=== PATIENT | male | born 1950 | race Caucasian/White ===

== ENCOUNTER → 2018-10-02 13:50 | Outpatient (CLI) | payer MEDICARE, BC, SELFPAY ==
--- NOTE | 2018-10-02 14:06 | CI_ITS ---
Cerebrovascular Exam IMPRESSIONS 1. The bilateral vertebral arteries are patent with normal antegrade flow. 2. Study suggests 20-49% stenosis involving the right internal carotid artery. 3. Study suggests 20-49% stenosis involving the left internal carotid artery. History: PMH: Calcification seen left carotid on c-spine x-ray. Risk factors: Hypertension. Carotid duplex study. Complete study and Doppler flow study including spectral analysis, color and kasper scale imaging. Height: Height: 182.9cm. Height: 72in. Weight: Weight: 97.5kg. Weight: 214.6lb. Body mass index: BMI: 29.2kg/m^2. Body surface area: BSA: 2.25m^2. Location: Vascular laboratory. Patient status: Outpatient. Tables: Arterial flow: + +--------+--------+ Location V abdoulaye V ed + +--------+--------+ Right CCA - proximal 80.1cm/s 18.1cm/s + +--------+--------+ Right CCA - distal 69.9cm/s 18.1cm/s + +--------+--------+ Right ECA 82.5cm/s 14.1cm/s + +--------+--------+ Right ICA - proximal 53.4cm/s 20.4cm/s + +--------+--------+ Right ICA - mid 69.9cm/s 22cm/s + +--------+--------+ Right ICA - distal 101cm/s 31.4cm/s + +--------+--------+ Right vertebral 47.9cm/s 13.4cm/s + +--------+--------+ Left CCA - proximal 80.1cm/s 18.1cm/s + +--------+--------+ Left CCA - distal 74.6cm/s 23.6cm/s + +--------+--------+ Left ECA 88cm/s 12.6cm/s + +--------+--------+ Left ICA - proximal 70.7cm/s 24.4cm/s + +--------+--------+ Left ICA - mid 116cm/s 39.3cm/s + +--------+--------+ Left ICA - distal 122cm/s 36.1cm/s + +--------+--------+ Left vertebral 44.8cm/s 11cm/s + +--------+--------+ Velocity ratios: + + + + + + Right, V sys Right, V ed Left, V sys Left, V ed + + + + + + Max ICA/dist CCA 1.44 1.73 1.64 1.67 + + + + + + (Report amended ) Electronically signed by: Vinayak Chang [id number]
== END ==
PROVIDERS: Visit Provider Internal Medicine
DX: I65.22 Occlusion and stenosis of left carotid artery; E78.5 Hyperlipidemia, unspecified; I11.9 Hypertensive heart disease without heart failure; I20.9 Angina pectoris, unspecified; N18.2 Chronic kidney disease, stage 2 (mild); R00.1 Bradycardia, unspecified; R73.9 Hyperglycemia, unspecified
CPT/HCPCS: 93880

== ENCOUNTER → 2019-10-01 09:48 | Outpatient (CLI) | payer MEDICARE, BC, SELFPAY ==
--- NOTE | 2019-10-01 09:51 | CA_ITS ---
APPROVED REPORT EXAM: Comprehensive 2D, Doppler, and color-flow Echocardiogram Chief Business Officer: Susannah Hernandez RDCS Ht: 6 ft 0 in Wt: 215lbs BSA: 2.20 BP: 161/85 mmHg Indications: Arrhythmia, CAD, Hyperlipidemia, Hypertension/HDD 2D Dimensions LVOT 2.43 cm (M/F) 1.5-2.5 M-Mode Dimensions RVDd 2.88 cm (0.9-2.6) LVDd 5.96 cm (3.5-5.7) LVDs 4.26 cm (3.5-5.7) IVSd 1.05 cm (0.6-1.1) PWd 0.85 cm (0.6-1.1) EF (Teich) 54.10% FS 28.50% EDV (Teich) 177.30 mL ESV (Teich) 81.30 mL LV Diastology E/A Ratio 0.35 Mitral Valve MV A Velocity 69.00 (40-130 cm/s) Left Ventricle Left atrium is mildly enlarged, left ventricle is normal size, mild concentric left ventricular hypertrophy, visually estimated ejection fraction 55% with no regional wall motion abnormality, grade 1 diastolic dysfunction seen without tissue Doppler evidence of raise left atrial pressure. Right Ventricle Right atrium and right ventricle mildly enlarged with normal contractility. Aortic Valve Aortic valve is thickened and calcified leaflet chordae display good mobility, there is no aortic stenosis or aortic insufficiency. Mitral Valve Mitral valve is grossly normal, there is mild mitral regurgitation. Tricuspid Valve Tricuspid valve is grossly normal, there is mild tricuspid regurgitation, tricuspid regurgitation jet velocity is inadequate for calculation of the right ventricular systolic pressure. Pulmonic Valve Pulmonic valve is poorly visualized. Great Vessels Aortic root is normal size. Pericardium No significant pericardial effusion noted. Conclusion 1. Mildly low left atrium, normal left ventricular size, mild concentric left ventricular hypertrophy, visually estimated ejection fraction 55% with no regional wall motion abnormality, grade 1 diastolic dysfunction seen without tissue Doppler evidence of raise left atrial pressure. 2. Mildly enlarged right ventricle with normal contractility. 3. Mild mitral and tricuspid regurgitation. 4. No significant pericardial effusion noted. Electronically signed by : Vickey Santacruz, 10/02/2019 06:20:31
== END ==
PROVIDERS: PCP Family Medicine; Visit Provider Urology
DX: E78.5 Hyperlipidemia, unspecified (principal); I11.9 Hypertensive heart disease without heart failure; I25.10 Atherosclerotic heart disease of native coronary artery without angina pectoris; R00.1 Bradycardia, unspecified
CPT/HCPCS: 93306

== ENCOUNTER → 2020-04-28 12:42 | Outpatient (CLI) | payer MEDICARE, BC, SELFPAY ==
--- NOTE | 2020-04-28 12:43 | CA_ITS ---
APPROVED REPORT Early Childhood Special Educator: CT Laterality: Bilateral Study Quality: Good Indications: omar Risk Factors Hypertension: Hyperlipidemia Doppler Spectral Velocity Analysis ECA (R) 121.40/15.40 cm/s ECA (L) 92.50/15.40 cm/s dICA (R) 120.80/32.60 cm/s dICA (L) 102.10/36.60 cm/s Dharmesh (R) 108.50/36.70 cm/s Dharmesh (L) 123.30/39.50 cm/s pICA (R) 95.80/24.70 cm/s pICA (L) 129.10/34.70 cm/s dCCA (R) 93.40/24.80 cm/s dCCA (L) 72.80/21.40 cm/s pCCA (R) 106.20/22.30 cm/s pCCA (L) 101.10/20.60 cm/s Vert (R) 54.80/14.60 cm/s Vert (L) 48.70/10.20 cm/s ICA/CCA 1.30 ICA/CCA 1.80 Conclusion Duplex evaluation demonstrates stenosis of the right proximal internal carotid artery in the range of 20-49% with PSV <140 cm/sec, EDV <100 cm/sec, and IC/CC Ratio <4.0, lower end scale. Duplex evaluation demonstrates stenosis of the left proximal internal carotid artery in the range of 20-49% with PSV <140 cm/sec, EDV <100 cm/sec, and IC/CC Ratio <4.0, lower end of scale. Duplex evaluation demonstrates antegrade flow of the bilateral Vertebral Arteries. Electronically signed by : Vinayak Chang MD 04/28/2020 18:47:21
== END ==
PROVIDERS: PCP Family Medicine; Visit Provider Nurse Practitioner Family
DX: I65.23 Occlusion and stenosis of bilateral carotid arteries (principal)
CPT/HCPCS: 93880

== ENCOUNTER → 2021-11-24 11:01 | Outpatient (CLI) | payer MEDICARE, BC, SELFPAY ==
--- NOTE | 2021-11-24 11:02 | CA_ITS ---
FINAL REPORT TECHNIQUE: Color Doppler, duplex Doppler and kasper scale sonography of the bilateral neck arterial vasculature was performed. Velocities were measured in the carotid arteries. Stenosis evaluation based on the validated velocity criteria. CLINICAL HISTORY: MARGIE,HTN,HLD FINDINGS: The peak systolic velocity of the right common carotid artery is 83 cm/s. The peak systolic velocity of the right internal carotid artery is 92 cm/s and end diastolic velocity 20 cm/s. The ICA/CCA ratio is 1.3. A mild amount of plaque is present. The right external carotid artery is patent. The right vertebral artery is patent with antegrade flow. The peak systolic velocity of the left common carotid artery is 83 cm/s. The peak systolic velocity of the left internal carotid artery is 97 cm/s and end diastolic velocity 26 cm/s. The ICA/CCA ratio is 1.3. A mild amount of plaque is present. The left external carotid artery is patent.The left vertebral artery is patent with antegrade flow. IMPRESSION: Less than 50% bilateral carotid stenosis. Bilateral patent vertebral arteries with antegrade flow. Reviewed, Interpreted and Dictated by Frank Collier MD Transcribed by Afia Carrillo Authenticated by Frank Collier MD on 11/24/2021 12:57:51 PM [facility]
== END ==
PROVIDERS: PCP Family Medicine; Visit Provider Physician Assistant
DX: E78.2 Mixed hyperlipidemia (principal); I11.9 Hypertensive heart disease without heart failure; I25.10 Atherosclerotic heart disease of native coronary artery without angina pectoris; I65.23 Occlusion and stenosis of bilateral carotid arteries; N18.2 Chronic kidney disease, stage 2 (mild)
CPT/HCPCS: 93880

== ENCOUNTER 2022-12-11 19:07 | Emergency (ER) | payer MEDICARE, BC, SELFPAY ==
[2022-12-11 19:08] VITALS: BP 189/82; PULSE 63; RESP 17; TEMP 36.7; O2SAT 98; BMI 31.1
--- NOTE | 2022-12-11 19:25 | XR_ITS ---
PROCEDURE INFORMATION: Exam: XR Chest Exam date and time: 12/11/2022 7:28 PM Age: 72 years old Clinical indication: Chest wall pain; Additional info: Intermittent chest pain TECHNIQUE: Imaging protocol: Radiologic exam of the chest. Views: 2 views. COMPARISON: No relevant prior studies available. FINDINGS: Lungs: Unremarkable. No consolidation. Pleural spaces: Unremarkable. No pleural effusion. No pneumothorax. Heart/Mediastinum: Unremarkable. No cardiomegaly. Bones/joints: Unremarkable. IMPRESSION: No acute findings.
[2022-12-11 19:30] VITALS: BP 165/84; PULSE 56; RESP 22; O2SAT 92
[2022-12-11 19:32] LABS: Basophils # 0.1 K/mm3 (0-0.2); Basophils % 1.6 % (0.1-2.0); Eosinophils # 0.2 K/mm3 (0.0-0.4); Eosinophils % 2.1 % (0.1-12.0); Hematocrit 48.6 % (42.0-52.0); Hemoglobin 15.9 g/dL (14.1-18.0); Lymphocytes # 2.2 K/mm3 (0.7-4.5); Lymphocytes % 28.7 % (10-50); Mean Corpuscular HGB Conc 32.8 g/dL (31.8-35.4); Mean Corpuscular Hemoglobin 30.3 pg (27.0-31.2); Mean Corpuscular Volume 92.6 fl (80-94); Mean Platelet Volume 8.3 fl (7.4-10.4); Monocytes # 0.3 K/mm3 (0.1-1.0); Monocytes % 4.5 % (1.7-9.3); Neutrophils # 4.8 K/mm3 (1.8-7.8); Neutrophils % 63.2 % (37.0-80.0); Platelet Count 208 K/mm3 (142-424); Red Blood Count 5.25 M/mm3 (4.60-6.20); Red Cell Distribution Width 13.3 % (11.5-17.5); White Blood Count 7.5 K/mm3 (4.8-10.8)
--- NOTE | 2022-12-11 19:35 | PC.NURSE ---
Pt gone to RAD via wheelchair
[2022-12-11 19:42] LABS: Chloride 106 mmol/L (98-107); Potassium 4.2 mmoL/L (3.5-5.1); Sodium 141 mmol/L (136-145)
--- NOTE | 2022-12-11 19:44 | PC.NURSE ---
Pt back from RAD
[2022-12-11 19:45] LABS: Anion Gap 12.2 mEq/L (5-15); Blood Urea Nitrogen 22 mg/dl (9-20); Calcium 9.1 mg/dl (8.4-10.2); Carbon Dioxide 27 mmol/L (22.0-30.0); Creatinine Clearance Estimated 101 mL/min (50-200); Estimated Glomerular Filt Rate 74 ml/min (>60); GFR (African American) 89 ML/MIN (>60); Glucose 179 mg/dl (74-100); Magnesium 1.8 mg/dl (1.6-2.3)
[2022-12-11 19:47] LABS: Bilirubin,Unconjugated 0.2 mg/dL (0.0-1.1)
[2022-12-11 19:48] LABS: Alanine Aminotransferase 50 U/L (12-78); Albumin Level 4.5 g/dl (3.5-5.0); Alkaline Phosphatase 47 U/L (38-126); Aspartate Amino Transferase 47 U/L (17-59); Bilirubin,Direct 0.4 mg/dl (0.0-0.4); Bilirubin,Indirect 0.2 mg/dL (0.0-0.9); Bilirubin,Total 0.6 mg/dl (0.2-1.3); Total Protein,Serum 7.7 g/dl (6.3-8.2)
[2022-12-11 19:54] LABS: NT Pro Brain Natriuretic Pep. 84.3 pg/mL (0-125)
[2022-12-11 19:58] LABS: Troponin I < 0.01 ng/ml (0.00-0.034)
--- NOTE | 2022-12-11 20:00 | ECG_ITS ---
APPROVED REPORT Exam: Resting ECG HR:71 bpm ECG Measurements Heart Rate 71 AXES PA 181 P 70 QRSd 128 QRS -35 QT 384 T 85 QTc 406 Conclusion SINUS RHYTHM WITH OCCASIONAL VENTRICULAR PREMATURE COMPLEXES LEFT AXIS DEVIATION [QRS AXIS < -30] SEPTAL MYOCARDIAL INFARCTION , PROBABLY OLD [40+ ms Q WAVE IN V1/V2] ABNORMAL ECG UNCONFIRMED REPORT Electronically signed by : Himanshu David MD 12/12/2022 19:50:41
--- NOTE | 2022-12-11 20:22 | PC.NURSE ---
Dr. Pak at BS speaking with pt
--- NOTE | 2022-12-11 20:26 | HMH.EDCP ---
Discharge Plan Disposition Patient Disposition: Home, Self-Care Chief Complaint: Chest Pain Prescriptions Prescriptions: No Action aspirin [Adult Low Dose Aspirin] 81 mg tablet,delayed release (DR/EC) 81 mg PO QDAY lisinopril-hydrochlorothiazide 20-12.5 mg tablet 1 tab PO QDAY nitroglycerin 0.4 mg tablet, sublingual 0.4 mg SUBLINGUAL Q5M PRN (Reason: Chest Pain) alprazolam [Xanax] 1 mg tablet 1 mg PO TID PRN (Reason: anxitey) omeprazole 40 mg capsule,delayed release(DR/EC) 40 mg PO QDAY rosuvastatin 10 mg tablet 10 mg PO QDAY Referrals Follow up/Referrals: Kevin Knight MD [Primary Care Provider] - See instructions Naldo Perea MD [Staff Physician] - See instructions Clinical Impressions Clinical Impression: Chest pain Instructions Patient Instructions: DI for Chest Pain Discharge ED Provider: Pasha (ED),Robby Pool Chest Pain HPI General Chief Complaint: Chest Pain Stated Complaint: CHEST PAIN Time Seen by Provider: 12/11/22 20:05 Mode of Arrival: Family Vehicle Source of Information: Patient, Spouse and Medical Record Limitations: No Limitations Description of Symptoms (Recalled from ER Triage Doc. by RN): Pt c/o several episodes of chest pain today. Denies any pain at this time. States it last occured about 1800 today. States it midsteral and occassional has radiated to right or left arm. Denies any others symtoms such as n/v/d, SOA, dizziness, or jaw/neck pain. States 6 yrs he had a heart cath at [place] by Dr. Perea that had a 40% blockage but no stents were placed. History of Present Illness HPI narrative: pt with episodes of chest pain over the last 2 weeks with hx of htn - MD complaint: chest pain indicative of cardiac Onset (ago): day(s) Duration: now resolved Activity at onset: light activity Pain location: left chest Severity: moderate Quality: other Pain radiation: LUE Risk Factors for CAD: Hypertension and Family Hx of CAD Treatments prior to or on arrival for Cardiac Chest Pain: none BOOM Score for Non-Stemi Age of Patient: 70-79 years old Heart Rate: <50 bpm Systolic Blood Pressure: 140-159 mmHg Serum Creatinine: 0.80-1.19 mg/dl CHF Killip Class: I-No CHF Other Risk Factors: None Non-Stemi Risk Score: 106 Risk Stratification: 1-108 = Low Risk Related Data Home Medications Medication Instructions Recorded Confirmed aspirin 81 mg tablet,delayed 81 mg PO QDAY heart health 11/15/17 12/11/22 release (Adult Low Dose Aspirin) lisinopril 20 1 tab PO QDAY High blood pressure 11/15/17 12/11/22 mg-hydrochlorothiazide 12.5 mg tablet nitroglycerin 0.4 mg sublingual 0.4 mg sublingual Q5M PRN Chest 11/15/17 12/11/22 tablet Pain alprazolam 1 mg tablet (Xanax) 1 mg PO TID PRN anxitey 04/28/20 12/11/22 omeprazole 40 mg capsule,delayed 40 mg PO QDAY GERD 12/11/22 12/11/22 release rosuvastatin 10 mg tablet 10 mg PO QDAY High cholesterol 12/11/22 12/11/22 Allergies Allergy/AdvReac Type Severity Reaction Status Date / Time No Known Allergies Allergy Verified 05/25/22 10:56 [facility] Disclaimer: The information contained in this section may have been updated after the patient was seen, as this information can be updated by other users. Social History Smoking Status: Never smoker alcohol intake: never substance use type: denies use current occupational status: retired Travel in the last 8 weeks: Inside the [place] ROS Obtained: Yes All systems reviewed & no additional complaints except as documented Physical Exam General General appearance: alert Head Head exam: normocephalic Eye Eye exam: Present PERRL and EOMI ENT ENT exam: Present mucous membranes moist Neck Neck exam: Present trachea midline Respiratory Respiratory exam: Present normal lung sounds bilaterally; Absent respiratory distress Cardiovascular Cardiovascular exam: Present regular rate and systolic murmur Abdominal Exam Abdominal e
[2022-12-11 20:44] VITALS: BP 147/69; PULSE 56; RESP 19; O2SAT 93
--- NOTE | 2022-12-11 20:45 | PC.NURSE ---
recheck pt, no pain at this time, resting comfortably. Given update on labs/xray, and waiting on 2nd troponin
[2022-12-11 21:01] VITALS: BP 150/69; PULSE 50; RESP 19; O2SAT 94
--- NOTE | 2022-12-11 22:04 | PC.NURSE ---
Second trop drawn and sent to lab
[2022-12-11 22:38] LABS: Troponin I < 0.01 ng/ml (0.00-0.034)
[2022-12-11 22:45] VITALS: BP 146/72; PULSE 49; RESP 18; TEMP 36.7; O2SAT 94
--- NOTE | 2022-12-11 22:50 | PC.NURSE ---
Dr. Pak at speaking with pt/family
== END 2022-12-11 23:01 | disposition home or self-care (01) ==
PROVIDERS: Emergency Medicine; Emergency Provider Emergency Medicine; PCP Family Medicine
DX: R07.89 Other chest pain (principal)
CPT/HCPCS: 71046; 80048; 80076; 83735; 83880; 84484; 85025; 93005; 96360; 99285

== ENCOUNTER → 2022-12-26 09:17 | Outpatient (CLI) | payer MEDICARE, BC, SELFPAY ==
--- NOTE | 2022-12-26 09:18 | CA_ITS ---
APPROVED REPORT EXAM: Comprehensive 2D, Doppler, and color-flow Echocardiogram Aviation Medicine Specialist: Jossy Cox RVT Ht: 6 ft 0 in Wt: 229lbs BSA: 2.26 BP: 150/69 mmHg Indications: ABN EKG,CP,HTN,HLD 2D Dimensions LVOT 2.52 cm (M/F) 1.5-2.5 LA Volume 35.90 mL LA Volume Index 15.88 mL/m2 (M/F) 16-34 M-Mode Dimensions RVDd 3.29 cm (0.9-2.6) LA Diam 3.83 cm (1.9-4.0) LVDd 5.42 cm (3.5-5.7) Ao Diam 3.39 cm (2.0-3.7) LVDs 3.94 cm (3.5-5.7) IVSd 1.13 cm (0.6-1.1) PWd 0.56 cm (0.6-1.1) EF (Teich) 52.60% FS 27.30% EDV (Teich) 142.50 mL TAPSE 2.68 (<1.7) ESV (Teich) 67.50 mL LV Diastology E Decel Time 380.00 (160-240 msec) E/A Ratio 0.6 MED E' 6.20 (< 7 cm/sec) E'/MED E' Ratio 8.90 (>14) LAT E' 8.80 (<10 cm/sec) E/LAT E' Ratio 6.27 (>14) Aortic Valve AI PHT 753.00 ms AO Peak GR. 13.50 mmHg Mitral Valve MV E Max Meir. 55.00 (40-130 cm/s) MV A Velocity 99.00 (40-130 cm/s) E/A Ratio 0.56 MV Decel. Time 380.00 (160-240 ms) MV PHT 111.00 ms Pulmonary Valve PV Peak Velocity 95.00 (50-150 cm/s) Tricuspid Valve TR P. Velocity 267.00 cm/s RAP Estimate 10.00 mmHg RVSP 38.40 mmHg Left Ventricle Left atrium is mildly enlarged on left ventricular normal size mild concentric left ventricular hypertrophy, estimated ejection fraction 55% with no regional wall motion abnormality, grade 1 diastolic dysfunction seen without tissue Doppler evidence of raise left atrial pressure. Right Ventricle Right atrium and right ventricular mildly enlarged with normal contractility. Aortic Valve Aortic valve is minimally thickened and calcified without aortic stenosis, there is trace aortic insufficiency. Mitral Valve Mitral valve is grossly normal, there is trace mitral regurgitation. Tricuspid Valve Tricuspid valve grossly normal, there is trace tricuspid regurgitation, tricuspid regurgitation jet velocity is inadequate for calculation of the right ventricular systolic pressure. Pulmonic Valve Pulmonic valve is poorly visualized. Great Vessels Aortic root is normal size. Inferior vena cava is poorly visualized. Pericardium No significant pericardial effusion noted. Conclusion 1. Mild biatrial enlargement, normal left ventricular size, mild concentric left ventricular hypertrophy, estimated ejection fraction 55% with no regional wall motion abnormality, grade 1 diastolic dysfunction seen without tissue Doppler evidence of late left atrial pressure. 2. Mildly enlarged right ventricle with normal contractility. 3. Thickened and calcified aortic valve without aortic stenosis, there is trace aortic insufficiency. 4. Trace mitral and tricuspid regurgitation. 5. No significant pericardial effusion noted. 6. Inferior vena cava is poorly visualized. Electronically signed by : Vickey Santacruz MD 12/26/2022 17:36:16
== END ==
PROVIDERS: PCP Family Medicine; Visit Provider Nurse Practitioner
DX: E78.2 Mixed hyperlipidemia (principal); I11.9 Hypertensive heart disease without heart failure; I25.10 Atherosclerotic heart disease of native coronary artery without angina pectoris; I65.22 Occlusion and stenosis of left carotid artery; I65.23 Occlusion and stenosis of bilateral carotid arteries; N18.2 Chronic kidney disease, stage 2 (mild)
CPT/HCPCS: 93306

== ENCOUNTER → 2023-01-09 11:47 | Outpatient (CLI) | payer MEDICARE, BC, SELFPAY ==
--- NOTE | 2023-01-09 | CA_ITS ---
APPROVED REPORT Exam: Pharmacologic Technologist: Michelle Mcclain, Ht: 6 ft 0 in Wt: 226 lbs BSA: 2.24 m2 HR: 59 bpm BP: 172/82 mmHg Rhythm: NSR, PRWP anteriorly Medical History Medications: Omeprazole,,,,, Aspirin,,,,, Xanax,,,,, Nitroglycerin,,,,, RoSUVASTATIN,,,,, Lisinopri/HCTZ,,,,, Stress Test Details Test: LEXISCAN HR Resting HR: 62 bpm Max Heart Rate (APMHR): 150.774826 bpm Max HR Achieved: 92 bpm Target HR (85% APMHR): 127.048497 bpm % of APMHR: 61.33 Recovery HR: 69 bpm BP Resting BP: 172/82 mmHg Max BP: 180/88 mmHg Recovery BP: 162.0/79.0 mmHg ECG Resting ECG: NSR, PRWP anteriorly Clinical Reason for Termination: Completed Protocol Exercise duration: 04:10 min Highest Stage Achieved: Exercise capacity: 1.0 METs Stress ECG Conclusion During lexiscan pt had no CP noted. Occasional PVCs noted. <1.5mm ST segment changes. Non diagnostic. Test Summary REST . . . . . . . Sitting REST 04:34 . . 62 . 172/ 82 . . Stage 1 01:00 . . 90 . . . . Stage 2 01:00 . . 86 . 180/ 88 . . Stage 3 01:00 . . 80 . 175/ 81 . . Stage 4 01:00 . . 75 . 161/ 84 . . Stage 4 01:10 . . 72 . 161/ 84 . Stop exercise at 04:10 RECOVERY 01:00 . . 74 . . . . RECOVERY 02:00 . . 69 . 162/ 76 . . Electronically signed by : Vickey Santacruz MD 01/09/2023 14:08:45
--- NOTE | 2023-01-09 11:47 | NM_ITS ---
APPROVED REPORT Exam: Nuclear Stress Test Indication: chest pain..fatigue Patient Location: Outpatient Stress Tech: Michelle BELTRE Tech:CORBY Trejo RT(R)(N) Ht: 6 ft 0 in Wt: 228 lbs HR: 59 bpm BP: 172/82 mmHg BSA: 2.25 m2 TID: 1.10 History: chest pain..fatigue Procedure: Patient received 0.4 mg of intravenous Lexiscan, resting heart rate 59 bpm, resting blood pressure 172/82 mmHg, with Lexiscan maximum heart rate achieved was 86 bpm which is Less than 85 % of the maximum predicted heart rate and blood pressure was 180/88 mmHg. With Lexiscan, patient denied any complaint of chest pain. Electrocardiogram Resting electrocardiogram shows sinus rhythm, with Lexiscan there is less than 1.[address] segment depression noted from the baseline EKG. The EKG portion of the Lexiscan is nondiagnostic. Cardiac Stress and Resting SPECT Images: Cardiac Stress and Resting SPECT images were obtained using technetium 99m Myoview 31.6 mCi stress and 10.20 mCi at rest. Gated SPECT analysis of segmental wall motion and calculation of the ejection fraction also done. Prone images were also obtained. Cardiac prone images show uniform myocardial activity without segmental perfusion abnormality, computer derived ejection fraction is 42% with no regional wall motion abnormality, right ventricle is normal size and contractility. Conclusion: 1. The EKG portion of the Lexiscan is nondiagnostic. 2. No scintigraphic evidence of reversible ischemia seen, computer derived ejection fraction is 42% with no regional wall motion abnormality, right ventricle is normal size and contractility. 3. Normal Lexiscan Myoview study except for low ejection fraction of 42%. Electronically signed by : Vickey Santacruz MD 01/09/2023 15:03:20
== END ==
PROVIDERS: PCP Family Medicine; Visit Provider Nurse Practitioner
DX: I25.10 Atherosclerotic heart disease of native coronary artery without angina pectoris (principal)
CPT/HCPCS: 78452; 93017; A9502; J2785

== ENCOUNTER 2024-02-05 10:04 | Outpatient (CLI) | payer MEDICARE, BC, SELFPAY ==
--- NOTE | 2024-02-05 10:08 | XR_ITS ---
FINAL REPORT CLINICAL HISTORY: rhonchi right lung base COMPARISON: 12/11/2022 FINDINGS: Two views of the chest were obtained. The heart size and pulmonary vascularity are within normal limits. The mediastinum is normal. There are mild right base opacities which are favored to represent atelectasis. There is no pneumothorax. The bony thorax is intact. IMPRESSION: Mild right base opacities favor atelectasis. Reviewed, Interpreted and Dictated by Arjun Ray III, MD Transcribed by Dona Shelby Authenticated and [facility]
== END 2024-02-05 23:59 ==
LOC: RAD 10:05
PROVIDERS: PCP Family Medicine; Visit Provider Nurse Practitioner
DX: R09.89 Other specified symptoms and signs involving the circulatory and respiratory systems (principal)
CPT/HCPCS: 71046

== ENCOUNTER 2024-09-10 10:52 | Outpatient (CLI) | payer MEDICARE, BC, SELFPAY ==
--- NOTE | 2024-09-10 11:00 | CA_ITS ---
FINAL REPORT TECHNIQUE: Color Doppler, duplex Doppler and kasper scale sonography of the bilateral neck arterial vasculature was performed. Velocities were measured in the carotid arteries. Stenosis evaluation based on the validated velocity criteria. CLINICAL HISTORY: MARGIE, HTN, HLD. COMPARISON: None FINDINGS: The peak systolic velocity of the right common carotid artery is 104 cm/s. The peak systolic velocity of the right internal carotid artery is 93 cm/s and end diastolic velocity 27 cm/s. The ICA/CCA ratio is 1.3. A moderate amount of plaque is present. The right external carotid artery is patent. The right vertebral artery is patent with antegrade flow. The peak systolic velocity of the left common carotid artery is 73 cm/s. The peak systolic velocity of the left internal carotid artery is 100 cm/s and end diastolic velocity 22 cm/s. The ICA/CCA ratio is 1.4. A moderate amount of plaque is present. The left external carotid artery is patent.The left vertebral artery is patent with antegrade flow. IMPRESSION: Less than 50% bilateral carotid stenoses. Bilateral patent vertebral arteries with antegrade flow. If indicated, CTA or MRA could further evaluate. Reviewed, Interpreted and Dictated by Arjun Ray III, MD Transcribed by Dona Shelby Authenticated and [facility]
== END 2024-09-10 23:59 | disposition home or self-care (01) ==
LOC: RT 10:55
PROVIDERS: PCP Family Medicine; Visit Provider Nurse Practitioner
DX: I65.23 Occlusion and stenosis of bilateral carotid arteries (principal)
CPT/HCPCS: 93880

== ENCOUNTER 2025-03-13 07:24 | Day surgery (SDC) | payer MEDICARE, BC, SELFPAY ==
[2025-03-13 07:30] VITALS: BMI 31.4
[2025-03-13 07:47] VITALS: BP 162/87; PULSE 55; PULSE 60; RESP 20; O2SAT 94
[2025-03-13 08:30] VITALS: BP 170/88; PULSE 52; RESP 20; O2SAT 95
[2025-03-13] MEDS: LIDOCAINE 2% W/EPI 1:100,000 20ML VIAL 20 ML SUBCUT (08:35)
[2025-03-13] MEDS: CEFAZOLIN SODIUM 1 GM in 0.9 % SODIUM CHLORIDE 50 ML IV (08:36)
--- NOTE | 2025-03-13 08:42 | EXP.LOOP ---
[facility] Loop Recorder Date: 03/13/25 Time: 08:30 Procedure Performed:: Implantation of loop recorder Indication:: Cryptogenic stroke Technique:: Patient was brought to the cardiac Document Management Technician. After informed consent obtained, 1% lidocaine with epinephrine was used to anesthetize the site along the left anterior aspect of the chest near the sternal border. Using the preformed scalpel, an incision was made and using the supplied preloaded apparatus, the loop recorder was placed subcutaneously without difficulty. Following the deployment of the loop recorder interrogation of the device was performed to ensure appropriate voltage was being detected. Once this was verified, Steri-Strips were placed over the incision and the patient was prepped to discharge home. Patient tolerated the procedure well with minimal discomfort. Impression:: Successful implantation of loop recorder Serial Number:: [employer]Nitro[employer]-IQ EL plus Model number [id number] Serial #[id number] Plan:: Routine postop care
[2025-03-13 09:08] VITALS: BP 136/78; PULSE 47; RESP 20; O2SAT 93
[2025-03-13 09:59] VITALS: BP 155/81; PULSE 70; RESP 16; O2SAT 95
== END 2025-03-13 10:37 | disposition home or self-care (01) ==
PROVIDERS: PCP Family Medicine; Visit Provider Internal Medicine
DX: I63.9 Cerebral infarction, unspecified (principal); Z79.899 Other long term (current) drug therapy; I65.23 Occlusion and stenosis of bilateral carotid arteries; I25.10 Atherosclerotic heart disease of native coronary artery without angina pectoris; I12.9 Hypertensive chronic kidney disease with stage 1 through stage 4 chronic kidney disease, or unspecified chronic kidney disease; N18.2 Chronic kidney disease, stage 2 (mild)
CPT/HCPCS: 33285; C1764; J0690

== ENCOUNTER 2025-06-18 09:24 | Outpatient (CLI) | payer MEDICARE, BC, SELFPAY ==
--- OUTSIDE RECORDS SUMMARY | 2025-05-23 08:30 | XMS_ITS | Encounter Summary ---
Author Organization [place] [address] Care Team Providers Care Lab Aide Name Role Phone Kevin Knight MD Primary Care Provider [phone] Reason for Visit * Reason Comments Follow-up Pt sf/u on BP, anxie ty meds, pt did state he had a loop recorder put in his chest In february Encounter Details Date Type Department Care Team (Late st Contact Info) Description 05/23/2025 8:30 AM EDT Office Visit [facility] [address] [place] [address] [address] [place] [address] Cristy Branham MD [address] [place] [address] Primary hypertension (Primary Dx); Anxiety; High risk medications (not anticoagulants) long-term use Social History Tobacco Use Types Packs/Day Years Used Date Smoking Tobacco: Never Passive Smoke Exposure: Past Smokeless Tobacco: Current Chew Comments:Parents smoked duri ng his childhood. Alcohol Use Standard Drinks/Week Comments Yes 0 (1 standard drink = 0.6 oz pur e alcohol) occ [facility] Utilities Answer Date Recorded In the past 12 months has [employer] electric, gas, oil, or water company threatened to shut off services in your home? No 11/21/2024 Overall Financial Resource Strain (CARDIA) Answe r Date Recorded How hard is it for you to pa y for the very basics like food, housing, medical care, and heating? Not hard at all 11/21/2024 PHQ-2 Answer Date Recorded PHQ-2 Total Score 0 11/21/2024 [facility] - Occupational Stress Questionnaire Answer Date Recorded Do you feel stress - tense, restless, nervous, or anxious, or unable to sleep at night because your mind is troubled all the time - these days? Not at all 11/21/2024 Exercise Vital Sign Answer Date Recorde d On average, how many days pe r week do you engage in moderate to strenuous exercise (like a brisk walk)? 7 days 11/21/2024 On average, how many minutes do you engage in exercise at this level? 60 min 11/21/2024 Hunger Vital Sign Answer Date Recorded Within the past 12 months, y ou worried that your food would run out before you got the money to buy more. Never true 11/21/19 25 Within the past 12 months, t he food you bought just didn't last and you didn't have money to get more. Never true 11/21/2024 [facility] IP Transportation Answer D ate Recorded In the past 12 months, has l ack of reliable transportation kept you from medical appointments, meetings, work or from getting things needed for daily living? No 11/21/2024 Sex and Gender Information Value Date Recorded Sex Assigned at Not on file Legal Sex Male 1:24 AM EDT Gender Identity Not on file Sexual Orientation Not on file documented as of this encounter Last Filed Vital Signs Vital Sign Reading Time Taken Comments Blood Pressure 150/60 05/23/2025 8:33 AM EDT Pulse 56 05/23/2025 8:12 AM EDT Temperature 36.5 C (97.7 F) 05/23/2025 8:12 AM EDT Respiratory Rate 18 05/23/2025 8:12 AM EDT Oxygen Saturation 98% 05/23/2025 8:12 AM EDT Inhaled Oxygen Concentration - - Weight 104.1 kg (229 lb 6.4 oz) 05/23/2025 8:12 AM EDT Height 180.3 cm (5' 11 ) 05/23/2025 8:12 AM EDT Body Mass Index 31.99 05/23/2025 8:12 AM EDT documented in this encounter Functional Status * Is the person deaf or does he/she have serious difficulty hearing? Answer Date of Assessment Author No 02/23/2024 9:44 AM Mariya Trivedi MA * Is the person blind or does he/she have serious difficulty seeing even when wearing glasses? Answer Date of Assessment Author No 02/23/2024 9:44 AM Mariya Trivedi MA * Does this person have serious difficulty walking or climbing stairs? Answer Date of Assessment Author No 02/23/2024 9:44 AM Mariya Trivedi MA * Does this person have difficulty dressing or bathing? Answer Date of Assessment Author No 02/23/2024 9:44 AM Mariya Trivedi MA * Because of a physical, mental or emotional condition, does this person have difficulty doing errands alone such as visiting a doctor's office or shopping? Answer Date of Assessment Author No 02/23/2024 9:44 AM Mariya Trivedi MA documented as of this encounter Mental Status * Because of a physical, mental or emotional condition, does this person have serious difficulty concentrating, remembering or making decisions? Answer Entry Date Author No 02/23/2024 9:44 AM Mariya Trivedi MA documented in this encounter Ordered Prescriptions Prescription Sig Dispense Quantity Refills Last Filled Start Date End Date ALPRAZolam (XANAX) 1 mg Oral TabletIndications:A nxiety,High risk medications (not anticoagulants) long-term use Take 1 Tablet by mouth 3 times daily. 90 Tablet 2 05/23/2025 documented in this encounter Progress Notes * Cristy Branham MD - 05/23/2025 8:30 AM EDTAssociated Problem(s): HTN (hypertension) Goal BP: <130/80 BP Readings from Last 3 Encounters: 05/23/25 (!) 150/90 02/07/25 (!) 154/72 01/22/25 132/78 - not at goal in office (but reports that home BP readings are in goal range) Compliance: - compliant with medications Home Blood Pressure Monitoring: - continue home BP monitoring as previous and bring readings to each office visit (currently checking twice a day) Advice: - continue a low salt diet and remain physically active Medication Management: - a reassessment of the patients current diagnoses, medications, labs, potential SE, appropriate dose and risks assessed and discussed today - Pt reports home BP averaging 110-120's/60's, usually more elevated in office - Compliant w/ medications - Continue checking BP twice a day, discussed that if they begin to notice a trend of BP increasingwould advise returning to office to increase HCTZ dose - F/u 3 months w/ PCP * Cristy Branham MD - 05/23/2025 8:30 AM EDTAssociated Problem(s): Anxiety State Prescription Drug Monitoring Program (i.e ROSA, INSPECT, OARS): - Last Successful PDMP Review: 05/23/2025 8:25 AM by Cristy Branham MD Urine Drug Screen: - urine drug screen completed in the last year Controlled Substatnce Contract: - completed and on file - Sx well controlled with current medication regimen and compliant with contract - Refill prescribed - Advised to f/u w/ PCP in 3 months Orders: ALPRAZolam (XANAX) 1 mg Oral Tablet; Take 1 Tablet by mouth 3 times daily. * Cristy Branham MD - 05/23/2025 8:30 AM EDT Assessment & Plan Primary hypertension Goal BP: <130/80 BP Readings from Last 3 Encounters: 05/23/25 (!) 150/90 02/07/25 (!) 154/72 01/22/25 132/78 - not at goal in office (but reports that home BP readings are in goal range) Compliance: - compliant with medications Home Blood Pressure Monitoring: - continue home BP monitoring as previous and bring readings to each office visit (currently checking twice a day) Advice: - continue a low salt diet and remain physically active Medication Management: - a reassessment of the patients current diagnoses, medications, labs, potential SE, appropriate dose and risks assessed and discussed today - Pt reports home BP averaging 110-120's/60's, usually more elevated in office - Compliant w/ medications - Continue checking BP twice a day, discussed that if they begin to notice a trend of BP increasingwould advise returning to office to increase HCTZ dose - F/u 3 months w/ PCP Anxiety State Prescription Drug Monitoring Program (i.e ROSA, INSPECT, OARS): - Last Successful PDMP Review: 05/23/2025 8:25 AM by Cristy Branham MD Urine Drug Screen: - urine drug screen completed in the last year Controlled Substatnce Contract: - completed and on file - Sx well controlled with current medication regimen and compliant with contract - Refill prescribed - Advised to f/u w/ PCP in 3 months Orders: ALPRAZolam (XANAX) 1 mg Oral Tablet; Take 1 Tablet by mouth 3 times daily. High risk medications (not anticoagulants) long-term use Orders: ALPRAZolam (XANAX) 1 mg Oral Tablet; Take 1 Tablet by mouth 3 times daily. Progress Note: Vitals: 05/23/25 0812 BP: (!) 150/90 BP Location: Left arm Patient Position: Sitting Pulse: 56 Resp: 18 Temp: 97.7 ??F (36.5 ??C) TempSrc: Forehead SpO2: 98% Weight: 229 lb 6.4 oz (104.1 kg) Height: 5' 11 (1.803 m) Body mass index is 31.99 kg/m??. SUBJECTIVE: Chief Complaint Patient presents with Follow-up Pt sf/u on BP, anxiety meds, pt did state he had a loop recorder put in his chest In february HPI: Pt here today for BP f/u and Anxiety medication f/u, pt stated he had a loop recorder put in his chest in february. Hypertension: Home reporting of hypertension was reviewed at time of visit. Thomas denies any episodes of dizziness, lightheadedness, presyncope, syncope, headache, or chest pain. Thomas does not report any new symptoms of possible hypertension sequelae. The patient reports that he is not having significant issues or side effects of current medications/treatments. Reports BP is usually 120's/60's at home, highe st readings usually in low 130's. Controlled Substance Common Conditions Interval Assessment: Anxiety: Thomas De La Fuente is here for follow up of chronic anxiety and medication management. Currently, he reports anxiety level as controlled with current treatments in place. He reports taking current medications 3 times per day. He is not having side effects from medications. He has abstained from alcohol while requiring this medication.Current limitations of anxiety symptoms include: ability to cope with day to day stress, and situations, without medication Doing well, No SE's with medication. No evidence of abuse/diversion. Pt informed and aware of medication's potential for abuse/dependence. Functional goal/goals of treatment: improve ability to function on day to day basis Review of Systems Constitutional: Negative for fatigue. Eyes: Negative for pain and visual disturbance. Respiratory: Negative for shortness of breath. Cardiovascular: Negative for chest pain and palpitations. Neurological: Negative for syncope, light-headedness and headaches. Psychiatric/Behavioral: Negative for dysphoric mood. The patient is nervous/anxious (well controlled w/ medication). OBJECTIVE: Physical Exam Constitutional: General: He is not in acute distress. Appearance: Normal appearance. Cardiovascular: Rate and Rhythm: Normal rate and regular rhythm. Pulmonary: Effort: Pulmonary effort is normal. No respiratory distress. Breath sounds: Normal breath sounds. No wheezing or rhonchi. Neurological: Mental Status: He is alert. Psychiatric: Mood and Affect: Mood normal. Behavior: Behavior normal. Thought Content: Thought content normal. Judgment: Judgment normal. documented in this encounter Plan of Treatment Upcoming Encounters Date Type Department Care Team (Late st Contact Info) Description 07/23/2025 9:00 AM EDT Appointment [facility] VASCULAR [address] [place] [phone] Deborah Mcnair MD [address] [place] [address] [place] [address] 07/23/2025 10:00 AM EDT Office Visit [facility] V[facility] S[facility] [address] [place] [address] Deborah Mcnair MD [address] [facility] [place] [address] documented as of this encounter Goals Goal Patient Goal Type Associated Problems Recent Progress Patient-Stated? Author Blood Pressure < 140/90 Blood Pressure 150/60(2024 8:33 AM EDT) Eli Obregon CCMA Eat better, exercise, reach an ideal body weight General No Nallely Kinsey RMA Stay Tobacco Free Lifestyle No Isael Prather documented as of this encounter Visit Diagnoses Diagnosis Primary hypertension- Primary Unspecified essential hypertension Anxiety Anxiety state, unspecified High risk medications (not anticoagulants) long-term use Encounter for long-term (current) use of other medications documented in this encounter Discontinued Medications Medication Sig Discontinue Reason Start Date End Da te ALPRAZolam (XANAX) 1 mg Oral TabletIndications:Anxiet y Take 1 Tablet by mouth 3 times daily. Reorder 02/07/2025 05/23/2025 documented as of this encounter Additional Health Concerns Assessment Noted Time A fall risk assessment has been complete d for the patient 08/30/2024 9:51 AM EDT documented as of this encounter Care Teams Lab Aide Relationship Specialty Start Date End Date Kevin Knight MD [address] [place], [place] [id number] PCP - General Family Medicine 10/14/13 documented as of this encounter
--- OUTSIDE RECORDS SUMMARY | 2025-06-18 09:29 | XMS_ITS | Encounter Summary ---
Author Organization [place] [address] Care Team Providers Care Manager Of Patient Name Role Phone Kevin Knight MD Primary Care Provider [phone] Encounter Details Date Type Department Care Team (Late st Contact Info) Description 09/16/2019 Orders Only [facility] Gastro [facility] [address] [facility] [address] [place] [address] Joshua Kwon MD [address] [place] [address] Social History Tobacco Use Types Packs/Day Years Used Date Smoking Tobacco: Never Smokeless Tobacco: Never Comments:chews Alcohol Use Standard Drinks/Week Comments Yes 0 (1 standard drink = 0.6 oz pur e alcohol) occ PHQ-2 Answer Date Recorded PHQ-2 Score 0 03/22/2019 Sex and Gender Information Value Date Recorded Sex Assigned at Not on file Legal Sex Male 1:24 AM EDT Gender Identity Not on file Sexual Orientation Not on file documented as of this encounter Functional Status * Is the person deaf or does he/she have serious difficulty hearing? Answer Date of Assessment Author No 11/30/2018 10:17 AM Mabel Cunningham RMA * Is the person blind or does he/she have serious difficulty seeing even when wearing glasses? Answer Date of Assessment Author Yes 11/30/2018 10:17 AM Mabel Cunningham RMA * Does this person have serious difficulty walking or climbing stairs? Answer Date of Assessment Author No 11/30/2018 10:17 AM Mabel Cunningham RMA * Does this person have difficulty dressing or bathing? Answer Date of Assessment Author No 11/30/2018 10:17 AM Mabel Cunningham RMA * Because of a physical, mental or emotional condition, does this person have difficulty doing errands alone such as visiting a doctor's office or shopping? Answer Date of Assessment Author No 11/30/2018 10:17 AM Mabel Cunningham RMA documented as of this encounter Mental Status * Because of a physical, mental or emotional condition, does this person have serious difficulty concentrating, remembering or making decisions? Answer Entry Date Author No 11/30/2018 10:17 AM Mabel Cunningham RMA documented in this encounter Plan of Treatment Upcoming Encounters Date Type Department Care Team (Late st Contact Info) Description 07/23/2025 9:00 AM EDT Appointment [facility] [address] [place] [address] [address] [place] [address] Deborah Mcnair MD [address] [place] [id number] 07/23/2025 10:00 AM EDT Office Visit [facility] [address] [place] [address] [address] [place] [address] Deborah Mcnair MD [address] [place] [address] documented as of this encounter Goals Goal Patient Goal Type Associated Problems Recent Progress Patient-Stated? Author Blood Pressure < 140/90 Blood Pressure 150/60(2024 8:33 AM EDT) No Eli Pereira CCMA Eat better, exercise, reach an ideal body weight General No Nallely Kinsey RMA documented as of this encounter Procedures Procedure Name Priority Date/Time Associated Diagnosis Comments GMED COLONOSCOPY Routine 09/16/2019 8:40 AM EST documented in this encounter Results * GMED COLONOSCOPY (09/16/2019 8:40 AM EST) 09/16/2019 8:40 AM EST Impressions [facility] - 09/16/2019 8:52 AM EST Grade 1 internal hemorrhoids. Plan: Screening Colonoscopy in 10 years. This section is an excerpt of the full report. us Joshua Kwon MD GI PROCEDURE ORDERABLES Fin al Result Performing Organization Address City/State/[facility] Co de Phone Number [facility] [address] [place] [phone] documented in this encounter Visit Diagnoses Not on filedocumented in this encounter Additional Health Concerns Assessment Noted Time A fall risk assessment has been complete d for the patient 08/31/2018 9:45 AM EDT documented as of this encounter Care Teams Manager Of Patient Relationship Specialty Start Date End Date Kevin Knight MD [address] [place] [address] PCP - General Family Medicine 10/14/13 documented as of this encounter
--- OUTSIDE RECORDS SUMMARY | 2025-06-18 09:29 | XMS_ITS | Clinical Summary ---
Author Organization [facility] Address [address] [facility] [address] [place] [phone] Phone Care Team Providers Care Dumb Waiter Operator Name Role Phone Kevin Knight MD Primary Care Provider + [phone] Allergies No known active allergies Medications MULTIVITAMIN ORAL Take by mouth. Active albuterol (PROVENTIL HFA;VENTOLIN HFA) 90 mcg/actuation Inhl HFA Aerosol InhalerIndicatio ns:Allergic rhinitis due to pollen, unspecified seasonality Inhale 2 Puffs into the lungs every 4 hours as needed. for wheezing 18 g 3 3 Active lisinopriL-hydro chlorothiazide (PRINZIDE;ZESTOR ETIC) 20-12.5 mg Oral TabletIndication s:Essential hypertension,Sta ge 2 chronic kidney disease,Coronary arteriosclerosis ,Hypertensive heart disease without heart failure Take 1 Tablet by mouth daily. 90 Tablet 3 5 Active timolol (TIMOPTIC) 0.25 % Opht Drops Place 1 Drop into both eyes 2 times daily. Active rosuvastatin (CRESTOR) 40 mg Oral Tablet Take 1 Tablet by mouth daily. 30 Tablet 2 11/22/2024 2:21 PM EST 5 Active aspirin 81 mg Oral Tablet, Delayed Release (E.C.) Take 1 Tablet by mouth daily. 18 Tablet 11/22/2024 2:21 PM EST 5 Active pantoprazole (PROTONIX) 40 mg Oral Tablet, Delayed Release (E.C.) Take 1 Tablet by mouth daily. 90 Tablet 3 11/22/2024 2:21 PM EST 5 Active clopidogreL (PLAVIX) 75 mg Oral TabletIndication s:Bilateral carotid artery stenosis Take 1 Tablet by mouth daily. 90 Each 3 5 Active nitroGLYCERIN (NITROSTAT) 0.4 mg SL Tablet, SublingualIndica tions:Angina pectoris Place 1 Tablet under the tongue every 5 minutes as needed for Chest pain. 30 Tablet 5 Active ALPRAZolam (XANAX) 1 mg Oral TabletIndication s:Anxiety,High risk medications (not anticoagulants) long-term use Take 1 Tablet by mouth 3 times daily. 90 Tablet 2 5 Active Active Problems Patient Care Coordination No te Formatting of this note migh t be different from the original. [facility] 08/30/2024 Drug contract signed 06/03/2022 Drug screen done 06/03/2022 Rosa done Ref# [id number] as expected Problem Noted Date Diagnosed Date Bilateral carotid artery stenosis 11/22/2024 Assessment & Plan (02/07/2025 11:42 AM EDT): Orders: clopidogreL (PLAVIX) 75 mg Oral Tablet; Take 1 Tablet by mouth daily. Assessment & Plan (11/22/2024 10:59 AM EST): Continue with antiplatelet and statin Seen by vascular, awaiting for additional input Acute right-sided weakness 11/20/2024 Overview (11/20/2024): Will get STAT MRI Brain Assessment & Plan (11/27/2024 5:39 PM EST): Assessment & Plan (11/22/2024 10:59 AM EST): Due to the above Assessment & Plan (11/21/2024 1:22 PM EST): Likely due to the above Assessment & Plan (11/20/2024 4:41 PM EST): Likely due to the above Assessment & Plan (11/20/2024 2:08 PM EST): Orders: MRI BRAIN WO CONTRAST; Future Acute stroke due to ischemia 11/20/2024 Assessment & Plan (11/27/2024 5:39 PM EST): Assessment & Plan (11/22/2024 10:59 AM EST): Continue telemetry Neuro check Echo EF 50-55%, no trombus. Carotid US bilateral ICA 40-59% stenosis CTA head and neck unremarkable Continue Crestor Continue ASA and plavix Neurology following, appreciate their input PT and OT recommended high intensity rehab, patient prefers outpatient therapy Assessment & Plan (11/21/2024 4:59 PM EST): Continue telemetry Neuro check Echo EF 50-55%, no trombus. Carotid US bilateral ICA 40-59% stenosis Follow his CTA head and neck Increase GEL COATER Crestor Continue ASA and plavix Neurology following, appreciate their input PT and OT recommended high intensity rehab, patient prefers outpatient therapy Assessment & Plan (11/20/2024 4:41 PM EST): Continue telemetry Neuro check Echo and carotid US Lipid panel Increase GEL COATER Crestor Patient reports compliance to GEL COATER ASA, will add plavix Neurology consult PT and OT to see him Prediabetes 11/20/2024 Assessment & Plan (11/22/2024 10:59 AM EST): A1c 6.5 Lifestyle measures discussed Patient to follow with his PCP Assessment & Plan (11/21/2024 4:59 PM EST): A1c 6.5 Lifestyle measures discussed Patient to follow with his PCP Assessment & Plan (11/20/2024 4:41 PM EST): ?New onset DM Check an A1c SSI Prediabetes 08/07/2020 Stage 2 chronic kidney disease 02/23/2018 Assessment & Plan (11/22/2024 10:59 AM EST): Stable Assessment & Plan (11/21/2024 1:22 PM EST): Stable Assessment & Plan (11/20/2024 4:41 PM EST): Stable Coronary arteriosclerosis 02/23/2018 Assessment & Plan (11/22/2024 10:59 AM EST): On ASA and statin Assessment & Plan (11/21/2024 1:22 PM EST): On ASA and statin Assessment & Plan (11/20/2024 4:41 PM EST): On ASA and statin Hypertensive heart disease 02/23/2018 Muscle pain 02/23/2018 Neck pain 02/23/2018 Vitamin D deficiency 02/23/2018 Bradycardia 05/18/2017 Chronic pain of right knee 09/30/2016 Hypertriglyceridemia 11/19/2015 AR (allergic rhinitis) 01/16/2015 HTN (hypertension) 10/18/2013 Assessment & Plan (05/23/2025 8:37 AM EDT): Goal BP: <130/80 BP Readings from Last [...] begin to notice a trend of BP increasing would advise returning to office to increase HCTZ dose - F/u 3 months w/ PCP Assessment & Plan (11/22/2024 10:59 AM EST): Continue Lisinopril, will adjust as needed Apresoline PRN Assessment & Plan (11/21/2024 4:59 PM EST): Continue with Lisinopril, will adjust as needed Apresoline PRN Assessment & Plan (11/20/2024 4:41 PM EST): Resume Lisinopril, will adjust as needed Apresoline PRN Hyperlipidemia Assessment & Plan (02/07/2025 11:42 AM EDT): Orders: LIPID PANEL REFLEX; Future CBC WITH DIFF; Future COMPREHENSIVE METABOLIC PANEL; Future Assessment & Plan (11/22/2024 10:59 AM EST): Crestor Assessment & Plan (11/21/2024 4:59 PM EST): Crestor Assessment & Plan (11/20/2024 4:41 PM EST): Caro, lipid panel Anxiety Assessment & Plan (05/23/2025 8:37 AM EDT): State Prescription Drug Monitoring Program (i.e ROSA, [...] 1 Tablet by mouth 3 times daily. Assessment & Plan (02/07/2025 11:42 AM EDT): Orders: ALPRAZolam (XANAX) 1 mg Oral Tablet; Take 1 Tablet by mouth 3 times daily. Assessment & Plan (11/22/2024 10:59 AM EST): Oi xanax Assessment & Plan (11/21/2024 4:59 PM EST): Oi xanax Assessment & Plan (11/20/2024 4:41 PM EST): Will resume GEL COATER meds once available Assessment & Plan (09/06/2024 5:42 PM EST): State Prescription Drug Monitoring Program (i.e ROSA, INSPECT, OARS): - report reviewed today Urine Drug Screen: - urine drug screen will be completed today Controlled Substatnce Contract: - completed and on file Resolved Problems Problem Noted Date Diagnosed Date Resolved Date Angina pectoris 10/10/2016 08/06/2021 Encounters Date Type Department Care Team Description 05/23/2025 8:30 AM EDT [facility] [address] [place] [address] [place] [phone] Cristy Branham MD Primary hypertension (Primary Dx); Anxiety; High risk medications (not anticoagulants) long-term use 05/14/2025 Telephone [facility] [address] [place] [address] [place] [phone] Kevin Knight MD Appointment Needed (Office visit ) from Last 3 Months Immunizations Immunization Administration Dates Next Due Influenza High Dose 08/30/2024,08/31/2018,2016 Influenza Vaccine Quadrivalent 09/04/2015 Influenza Vaccine Quadrivalent PF 09/02/2016 Influenza Vaccine, Unspecifi ed Formulation 09/02/2016,07/16/2013,07/25/2011 Moderna SARS-CoV-2 Booster V accine 18+ Yrs (Light Blue Border) 03/03/2022,09/04/2021 Moderna SARS-CoV-2 Vaccine 1 2+ Yrs (Light blue border) 12/27/2020 Pfizer SARS-CoV-2 Vaccine Tr is-sucrose 12+ Yrs 08/25/2023 Pneumococcal Conjugate Vacci ne 13 Valent 08/25/2017 Pneumococcal Polysaccharide 23 Valent 10/03/2018 ,07/25/2011 Quadrivalent Influenza High Dose 023,09/01/2022,08/06/2021,08/07 Zoster 09/30/2016 Medical History Medical History Date Comments Essential (primary) hypertension Mixed hyperlipidemia ASHD (arteriosclerotic heart disease) Family History Medical History Relation Name Comments Unknown Father Unknown Mother Relation Name Status Comments Father Mother Social History Tobacco Use Types Packs/Day Years Used Date Smoking Tobacco: Never Passive Smoke Exposure: Past Smokeless Tobacco: Current Chew Comments:Parents smoked marla ng his childhood. Alcohol Use Standard Drinks/Week Comments Yes 0 (1 standard drink = 0.6 oz pur e alcohol) [facility] Utilities Answer Date Recorded In the past 12 months has th e electric, gas, oil, or water company threatened to shut off services in your home? No 11/21/2024 Overall Financial Resource Strain (CARDIA) Answe r Date Recorded How hard is it for you to pa y for the very basics like food, housing, medical care, and heating? Not hard at all 11/21/2024 PHQ-2 Answer Date Recorded PHQ-2 Total Score 0 11/21/2024 [facility] - Occupational Stress [...] money to get more. Never true 11/21/2024 [facility] Transportation Answer D ate Recorded In the past 12 months, has l ack of reliable transportation kept you from medical appointments, meetings, work or from getting things needed for daily living? No 11/21/2024 Sex and Gender Information Value Date Recorded Sex Assigned at Not on file Legal Sex Male 1:24 AM EDT Gender Identity Not on file Sexual Orientation Not on file Obstetrics History Last Filed Vital Signs Vital Sign Reading [...] Mass Index 31.99 05/23/2025 8:12 AM EDT Plan of Treatment Upcoming Encounters Date Type Department Care Team (Late st Contact Info) Description 07/23/2025 9:00 AM EDT Appointment [facility] [address] [place] [address] [address] [place] [address] Deborah Mcnair MD [address] [place] [address] [place] [address] 07/23/2025 10:00 AM EDT Office Visit [facility] [address] [place] [address] [address] [place] [address] Deborah Mcnair MD [address] [place] [address] [place] [address] Health Maintenance Due Date Last Done Comments Diabetic Eye Exam 1970 DTaP/TDaP/Td (1 - Tdap) 1971 FIT 1997 Sigmoidoscopy 1997 Virtual Colonography 1997 Zoster (2 of 3) 11/25/2016 09/30/2016 Cologuard 03/18/2022 03/18/2019 COVID-19 Vaccine ( season) 2024 08/25/2023, 08/11/2022, 03/03/2022, Additional history exists Hemoglobin A1c 05/20/2025 11/20/2024, 10/2 04/2023, 12/02/2022, Additional history exists Influenza Vaccine (#1) 2025 4, 08/25/2023, 09/01/2022, Additional history exists Wellness Exam Medicare 08/31/2025 08/30/2024, 2022 Kidney Health: eGFR 02/07/2026 02/07/2025, 11/20/2024, 02/23/2024, Additional history exists Kidney Health: uACR 02/07/2026 02/07/2025 Lipids 02/07/2026 02/07/2025, 10/31, 02/23/2024, Additional history exists Colon Cancer Screening 09/16/2029 Colonoscopy 09/16/2029 09/16/2019 Hepatitis C Screening Completed 08/31/2018 Pneumococcal Vaccine 50+ Completed 018, 08/25/2017, 07/25/2011 Hepatitis B Vaccine Aged Out No longe r eligible based on patient's age to complete this topic Meningococcal B Vaccine Aged Out No l onger eligible based on patient's age to complete this topic Goals Goal Patient Goal Type Associated Problems Recent Progress Patient-Stated? Author Blood Pressure < 140/90 Blood Pressure 150/60(2024 8:33 AM EDT) No Eli Pereira CCMA Eat better, exercise, reach an ideal body weight General No Nallely Kinsey RMA Stay Tobacco Free Lifestyle No Isael Prather Procedures Procedure Name Priority Date/Time Associated Diagnosis Comments MICROALBUMIN/CREATI NINE RATIO URINE Routine 02/07/2025 10:47 AM EDT Hypertriglyceridemia COMPREHENSIVE METABOLIC PANEL Routine 02/07/2025 10:47 AM EDT Pure hypertriglyceridemia Essential hypertension LIPID PANEL REFLEX Routine 02/07/2025 10:47 AM EDT Pure hypertriglyceridemia HEMOGLOBIN A1C Routine 11/20/2024 4:47 PM EST GMED COLONOSCOPY Routine 09/16/2019 8:40 AM EST COLOGUARD Routine 03/18/2019 7:00 AM EDT Screening for colon cancer HCV ANTIBODY SCREEN W/ REFLEX Routine 08/31/2018 11:13 AM EDT Need for hepatitis C screening test from Last 3 Months or Most Recently Relevant to Health Maintenance Results * (ABNORMAL) LIPID PANEL REFLEX (02/07/2025 10:47 AM EDT) Cholesterol 178 <200 mg/dL 02/07/2025 8:08 PM EDT [employer] Comment: < 200 Desirable 200 - 239 Borderline High >= 240 High Triglyceride 183(H) <150 mg/dL 02/07/2025 8:08 PM EDT [employer] Comment: < 150 Normal 150 - 199 Borderline High 200 - 499 High >= 500 Very High HDL 36(L) >=40 mg/dL 02/07/2025 8:08 PM EDT [employer] Comment: > 60 Optimal 40 - 60 Acceptable < 40 Low LDL Calculated 110(H) <100 mg/dL 02/07/2025 8:08 PM EDT [employer] Comment: < 100 Optimal 100 - 129 Near or above optimal 130 - 159 Borderline High 160 - 189 High >= 190 Very High The National Institutes of Health (NIH) equation is used for all lipid panels that report calculated LDL (LDL-C). Non-HDL-C Calculated 142(H) <=129 mg/dL 02/07/2025 8:08 PM EDT [employer] Comment: <130 Desirable 130-159 Above Desirable 160-189 Borderline High 190-219 High >= 220 Very High Fasting Specimen? Yes None 025 8:08 PM EDT [employer] Blood VENOUS BLOOD / Unknown Venipuncture / Unknown 02/07/2025 10:47 AM EDT 02/07/2025 10:47 AM EDT us Kevin Knight MD CHEMISTRY ORDERABLES Final R esult [facility] , [place] [address] * MICROALBUMIN/CREATININE RATIO URINE (02/07/2025 10:47 AM EDT) Urine Microalb <12.0 mg/L 02/07/2025 3:18 PM EDT [facility] Urine Creatinine 125.0 mg/dL 02/08/20 25 3:18 PM EDT [facility] Ur Microalb/Creat 025 3:18 PM EDT [facility] Comment: Because the albumin level is below the level of detection in this urine specimen, the laboratory is unable to calculate a reliable albumin/creatinine ratio. Microalbuminuria is unlikely if the urine albumin concentration is less than 20- 30 mg/L in a random specimen. Urine STRUCTURE OF URINARY TRACT PROPER / Unknown 02/07/2025 10:47 AM EDT 02/07/2025 10:47 AM EDT us Kevin Knight MD URINE ORDERABLES Final Resul t [facility] [address] [facility] , [place] [address] * (ABNORMAL) COMPREHENSIVE METABOLIC PANEL (02/07/2025 10:47 AM EDT) Sodium 139 136 - 145 mmol/L 02/07/2025 8:08 PM EDT [facility] Potassium 4.6 3.5 - 5.0 mmol/L 02/07/2025 8:08 PM EDT [facility] Chloride 101 98 - 107 mmol/L 02/07/2025 8:08 PM EDT [facility] Total CO2 26 22 - 29 mmol/L 02/07/2025 8:08 PM EDT [facility] Anion Gap 12 7 - 16 mmol/L 02/07/2025 8:08 PM EDT [facility] Calcium 10.0 8.8 - 10.4 mg/dL 02/07/2025 8:08 PM EDT [facility] Glucose Lvl 142(H) 70 - 99 mg/dL 02/07/2025 8:08 PM EDT [facility] BUN 27(H) 8 - 23 mg/dL 02/07/2025 8:08 PM EDT [facility] Creatinine 1.00 0.67 - 1.30 mg/dL 02/07/2025 8:08 PM EDT [facility] Albumin 4.5 3.2 - 4.6 gm/dL 02/07/2025 8:08 PM EDT [facility] Total Protein 7.5 6.4 - 8.3 gm/dL 02/07/2025 8:08 PM EDT [facility] Bili Total 0.5 0.2 - 1.4 mg/dL 02/07/2025 8:08 PM EDT [facility] ALT 46(H) <=41 U/L 02/07/2025 8:08 PM EDT [facility] AST 24 <=40 U/L 02/07/2025 8:08 PM EDT [facility] Alk Phos 55 40 - 129 U/L 02/07/2025 8:08 PM EDT [facility] eGFR (CKD-EPIcr 2020) 80 >=60 mL/min/1.7 3 m2 02/07/2025 8:08 PM EDT [facility] Comment:Estimated GFR was ca lculated using the CKD-EPIcr (2020) equation refit without race. The equation is recommended by the National Kidney Foundation - [place] Society of Nephrology Task Force. Blood VENOUS BLOOD / Unknown Venipuncture / Unknown 02/07/2025 10:47 AM EDT 02/07/2025 10:47 AM EDT us Kevin Knight MD CHEMISTRY ORDERABLES Final R esult [facility] [address] [facility] , [address] [place] [id number] * (ABNORMAL) HEMOGLOBIN A1C (11/20/2024 4:47 PM EST) Hgb A1C 6.5(H) 4.2 - 5.6 % 11/20/2024 5:07 PM EST [facility] Est. Avg Glucose 140 mg/dL 11/20/2024 5:07 PM EST [facility] Blood VENOUS BLOOD / Unknown Venipuncture / Unknown 11/20/2024 4:47 PM EST 11/20/2024 4:50 PM EST Narrative [facility] - 11/20/2024 5:07 PM EST REFERENCE RANGE: Normal: 4.0-5.6% Pre-diabetes: 5.7-6.4% Provisional diagnosis of diabetes: >6.4% Hgb F>10% and anything which shortens red cell survival, such as hemolytic anemia, or unstable hemoglobin variants such as HbSS, HbSC, or HbCC, will lower the HbA1c value associated with a given level of glycemic control. Sil Hope MD CHEMISTRY ORDERABLES Final Re sult Performing Organization Address [facility] Co de Phone Number [facility] [address] [facility], [place] [address] * GMED COLONOSCOPY (09/16/2019 8:40 AM EST) 09/16/2019 8:40 AM EST Impressions [facility] - 09/16/2019 8:52 AM EST Grade 1 internal hemorrhoids. Plan: Screening Colonoscopy in 10 years. This section is an excerpt of the full report. Joshua Kwon MD GI PROCEDURE ORDERABLES Fin al Result Performing Organization Address [facility] [place] [address] * (ABNORMAL) COLOGUARD (03/18/2019 7:00 AM EDT) COLOGUARD CLINICAL REPORT Positive( A) Not Applicable [employer] Comment: It is recommended that a positive Cologuard screen be clinically correlated and followed-up with a structural examination of the colon such as diagnostic colonoscopy. Colonoscopies performed for a positive Cologuard may find as the most clinically significant lesion: colorectal cancer [4.0%], advanced adenoma (including sessile serrated polyps greater than or equal to 1cm diameter) [20%] or non- advanced adenoma [31%]; or no colorectal neoplasia [45%]. These estimates are derived from a prospective cross-sectional screening study of 10,000 individuals at average risk for colorectal cancer who were screened with both Cologuard and colonoscopy. (Table 3, Pascual Martínez et al, N Engl J Med 2014;370(14):0078-9289.) Test Type: Composite algorithmic analysis of stool DNA-biomarkers with hemoglobin immunoassay. Quantitative values of individual biomarkers are not reportable and are not associated with individual biomarker result reference ranges. Precautions and Limitations: Cologuard is intended for colorectal cancer screening of adults of either sex, 50 years or older, who are at typical average-risk for colorectal cancer. A negative Cologuard test result does not guarantee the absence of colorectal cancer or advanced adenoma (pre-cancer). Patients with a negative Cologuard test result should be advised to continue participating in a colorectal cancer screening program. Cologuard may produce a positive result, even though a colonoscopy may not find colorectal cancer or precancerous polyps. The performance of Cologuard has been established in a cross sectional study (i.e., single point in time). Performance has not been evaluated in adults who have been previously tested with Cologuard or in patients less than 50 years of age. Cologuard has been approved for use by the U.S. FDA. Cologuard performance data in a 10,000 patient pivotal study using colonoscopy as the reference method can be accessed at the following location: www.[email or web address]. Additional description of the Cologuard test process, warnings and precautions can be found at www.cologuardtest.com. Rx Only. Stool specimen (specimen) 03/18/2019 7:00 AM EDT 03/19/2019 4:04 PM EDT us Kevin Knight MD [employer] - ORDERABLES F inal Result [employer] [facility] [place] [address], [facility] [employer] [address] [place] [address] [address] [place] [id number] * HEPATITIS C ANTIBODY - SCREENING (08/31/2018 11:13 AM EDT) Hep C Ab Non-Reactiv e Non-Reacti ve 08/31/2018 9:16 PM EDT [employer] Blood VENOUS BLOOD / Unknown Venipuncture / Unknown 08/31/2018 11:13 AM EDT 08/31/2018 11:13 AM EDT us Kevin Knight MD HEMATOLOGY ORDERABLES Final Result [employer] [address] [facility] , [place] [address] from Last 3 Months or Most Recently Relevant to Health Maintenance Insurance MEDICARE [place] PART A AND B Member Subscriber Plan / Payer (Ef fective 2017-Present) Name:Thomas De La Fuente Maria C Member ID:[id number] Relation to Subscriber:Self Name:Thomas De La Fuente Maria C Subscriber ID:[id number] Payer ID:Not on file Group ID:Not on file Type:Not on file Address: [address] MEDICARE SUPPLEMENT [place] [address] [facility] MEDIC[facility] SUPPLEMENT Advance Directives For more information, please contact: [phone] * Full Code (Latest Code Status on File) Date Activated Date Inactivated Comments 11/21/2024 4:59 PM 11/22/2024 8:39 PM Care Teams Dumb Waiter Operator Relationship Specialty Start Date End Date Kevin Knight MD [address] [place] [address] PCP - General Family Medicine 10/14/13
--- OUTSIDE RECORDS SUMMARY | 2025-06-18 09:29 | XMS_ITS | Encounter Summary ---
Author Organization [place] [address] Care Team Providers Care Tile Machine Operator Name Role Phone Kevin Knight MD Primary Care Provider [phone] Reason for Visit * Reason Onset Date Comments Appointment Needed 05/14/2025 Office visit Encounter Details Date Type Department Care Team (Late st Contact Info) Description 05/14/2025 Telephone [facility] Primary Care [address] [place] [address] [place] [address] [place] [address] [place] [address] Appointment Needed (Office visit ) Social History Tobacco Use Types Packs/Day Years Used Date Smoking Tobacco: Never Passive Smoke Exposure: Past Smokeless Tobacco: Current Chew Comments:Parents smoked duri ng his childhood. Alcohol Use Standard Drinks/Week Comments Yes 0 (1 standard drink = 0.6 oz pur e alcohol) [facility] Utilities Answer Date Recorded In the past 12 months has [employer] electric, gas, oil, or water [employer] threatened to shut off services in your home? No 11/21/2024 Overall Financial Resource Strain (CARDIA) Answe r Date Recorded How hard is it for you to pa y for the very basics like food, housing, medical care, and heating? Not hard at all 11/21/2024 PHQ-2 Answer Date Recorded PHQ-2 Total Score 0 11/21/2024 [facility] - Occupational Stress [...] money to get more. Never true 11/21/2024 [facility] IP Transportation Answer D ate Recorded In the past 12 months, has l ack of reliable transportation kept you from medical appointments, meetings, work or from getting things needed for daily living? No 11/21/2024 Sex and Gender Information Value Date Recorded Sex Assigned at Not on file Legal Sex Male 1:24 AM KARYN Gender Identity Not on file Sexual Orientation [...] Entry Date Author No 02/23/2024 9:44 AM EDT Mariya Mcgowan MA documented in this encounter Miscellaneous Notes * Telephone Encounter - Blaire Smith, Clerical Staff - 05/14/2025 11:21 AM EDT Called pt and scheduled apt * Telephone Encounter - Denys Hernandez MA - 05/14/2025 10:24 AM EDT Select the most appropriate reason for this telephone message: Appointment Needed Appointment Requested By: Ana (on [facility]) Provider Preference: Any Available Type of Appt Needed: Office Visit Detailed Reason for Appt: 3 month f/u- Hypertension, Anxiety (Lorazepam refill) Requested Timeframe: Check with Reason Scheduling Assistance is Needed: -other - unsure who office wanted to schedule patient with,since it is for controlled medication refill. Return Method of Communication: Phone Call Additional Information: Thank you! documented in this encounter Plan of Treatment Upcoming Encounters Date Type Department Care Team (Late st Contact Info) Description 07/23/2025 9:00 AM EDT Appointment [facility] [address] [place] [address] [address] [place] [address] Deborah Mcnair MD [address] [place] [address] [place] [address] 07/23/2025 10:00 AM EDT Office Visit [facility] [address] [place] [address] [address] [place] [address] Deborah Mcnair MD [address] [place] [address] [place] [address] documented as of this encounter Goals Goal Patient Goal Type Associated Problems Recent Progress Patient-Stated? Author Blood Pressure < 140/90 Blood Pressure 150/60(2024 8:33 AM EDT) No Eli Pereira CCMA Eat better, exercise, reach an ideal body weight General No Nallely Kinsey RMA Stay Tobacco Free Lifestyle No Isael Prather documented as of this encounter Visit Diagnoses Not on filedocumented in this encounter Additional Health Concerns Assessment Noted Time A fall risk assessment has been complete d for the patient 08/30/2024 9:51 AM EDT documented as of this encounter Care Teams Tile Machine Operator Relationship Specialty Start Date End Date Kevin Knight MD [address] [place] [address] PCP - General Family Medicine 10/14/13 documented as of this encounter
[2025-06-18 10:07] LABS: Hematocrit 45.4 % (42.0-52.0); Hemoglobin 15.4 g/dL (14.1-18.0); Immature Granulocytes % 0.8 %; Mean Corpuscular HGB Conc 33.9 g/dL (31.8-35.4); Mean Corpuscular Hemoglobin 30.8 pg (27.0-31.2); Mean Corpuscular Volume 90.8 fl (80-94); Nucleated Red Blood Cells % 0 %; Platelet Count 205 K/mm3 (142-424); Red Blood Count 5.00 M/mm3 (4.60-6.20); Red Cell Distribution Width-SD 41.2 fL; White Blood Count 5.9 K/mm3 (4.8-10.8)
[2025-06-18 10:56] LABS: Free T4 (Free Thyroxine) 0.94 ng/dl (0.78-2.19)
[2025-06-18 11:31] LABS: Alanine Aminotransferase 44 U/L (12-78); Albumin Level 4.6 g/dl (3.5-5.0); Alkaline Phosphatase 57 U/L (38-126); Anion Gap 15.9 mEq/L (5-15); Aspartate Amino Transferase 34 U/L (17-59); Bilirubin,Direct 0.2 mg/dl (0.0-0.4); Bilirubin,Indirect 0.5 mg/dL (0.0-0.9); Bilirubin,Total 0.7 mg/dl (0.2-1.3); Bilirubin,Unconjugated 0.5 mg/dL (0.0-1.1); Blood Urea Nitrogen 23 mg/dl (9-20); Calcium 9.7 mg/dl (8.4-10.2); Carbon Dioxide 27 mmol/L (22.0-30.0); Chloride 101 mmol/L (98-107); Cholesterol 166 mg/dl (140-200); Creatinine,Serum 0.90 mg/dl (0.66-1.25); Estimated Glomerular Filt Rate 83 ml/min (>60); GFR (African American) 100 ML/MIN (>60); Glucose 156 mg/dl (74-100); HDL Cholesterol 35 mg/dl (40-60); Magnesium 1.8 mg/dl (1.6-2.3); Potassium 4.9 mmoL/L (3.5-5.1); Sodium 139 mmol/L (136-145); Total Protein,Serum 7.3 g/dl (6.3-8.2); Triglycerides 232 mg/dl (30-150)
[2025-06-18 12:02] LABS: Thyroid Stimulating Hormone 1.52 uIU/mL (0.465-4.68)
== END 2025-06-18 23:59 | disposition home or self-care (01) ==
LOC: LAB 09:26
PROVIDERS: PCP Family Medicine; Visit Provider Nurse Practitioner
DX: I25.10 Atherosclerotic heart disease of native coronary artery without angina pectoris (principal); I11.9 Hypertensive heart disease without heart failure; E78.5 Hyperlipidemia, unspecified
CPT/HCPCS: 36415; 80048; 80061; 80076; 83735; 84439; 84443; 85025